=== PATIENT | female | born 1945 | race Caucasian/White ===

== ENCOUNTER 2025-04-02 08:49 | Outpatient (CLI) | payer MEDICARE | END 2025-04-02 08:50 | disposition home or self-care (01) | LOC: ULT 08:49 | PROVIDERS: ATTEND Internal Medicine Gastroenterology | DX: M41.9 Scoliosis, unspecified (principal); R19.7 Diarrhea, unspecified; R19.8 Other specified symptoms and signs involving the digestive system and abdomen; R10.13 Epigastric pain | CPT/HCPCS: 76700 ==